=== PATIENT | female | born 1965 | race Caucasian/White ===

== ENCOUNTER → 2022-09-21 | Outpatient (CLI) | payer OTHER ==
[~2022-09-21] VITALS: Ht 160 cm; Wt 65.9 kg
[~2022-09-21] MED LIST: LIDOCAINE 1% INJ 30 ML (XYLOCAINE) VIAL INJ ONE; LIDOCAINE 1% INJ 30 ML (XYLOCAINE) VIAL ONE
--- NOTE | 2022-09-21 12:51 | Diagnostic Imaging Report ---
INDICATION: Left breast calcifications. Patient presents for stereotactic biopsy. Patient brought to the stereotactic suite and placed in chair a sitting upright position. Left breast was positioned lateral medial. Stereotactic imaging of the left breast was performed. The cluster of microcalcifications in the slightly outer portion of the left breast anterior depth were stereotactically targeted. All images were viewed on a dedicated workstation. Lateral left breast was then prepped and draped in usual sterile fashion. Small amount of 1% lidocaine was utilized for local anesthesia. The 8 gauge vacuum-assisted needle was then advanced from a lateral medial approach and placed per stereotactic coordinates. 4 core biopsies were obtained with 8 gauge vacuum-assisted device. Specimen radiograph was then obtained demonstrating cluster of microcalcifications within sample labeled #2. Marker clip was then deployed. Needle was removed and hemostasis was obtained using manual compression. Patient tolerated the procedure well and left the Department in stable condition. IMPRESSION: Successful stereotactic biopsy of the cluster microcalcifications in the outer left breast anterior depth utilizing 8 gauge vacuum-assisted device. Pathology results are currently pending. Dictated by: Dictated on workstation # [id number]
== END ==
LOC: RAD 10:11
PROVIDERS: ATTEND Nurse Practitioner Women's Health
DX: R92.0 Mammographic microcalcification found on diagnostic imaging of breast (principal)
CPT/HCPCS: 19081; A4648